=== PATIENT | female | born 1950 | race Caucasian/White ===

== ENCOUNTER → 2024-04-24 09:00 | Outpatient (BNVA) | payer MEDICARE, BC, SELFPAY | PROVIDERS: PCP Family Medicine; Visit Provider Family Medicine | DX: D64.9 Anemia, unspecified (principal); I50.20 Unspecified systolic (congestive) heart failure; R10.11 Right upper quadrant pain; R11.0 Nausea; I10 Essential (primary) hypertension; E78.2 Mixed hyperlipidemia; Z76.89 Persons encountering health services in other specified circumstances; I50.9 Heart failure, unspecified; E55.9 Vitamin D deficiency, unspecified; R79.89 Other specified abnormal findings of blood chemistry; R10.13 Epigastric pain | CPT/HCPCS: 80053; 80061; 82306; 82607; 82728; 82746; 83550; 83735; 84439; 84443; 85025; 85651; 86140 ==

== ENCOUNTER → 2024-04-26 16:12 | Outpatient (BNVA) | payer MEDICARE, BC, SELFPAY | PROVIDERS: PCP Family Medicine; Visit Provider Family Medicine | DX: R10.11 Right upper quadrant pain (principal); R11.0 Nausea; D64.9 Anemia, unspecified; R10.13 Epigastric pain | CPT/HCPCS: 87338; G0328 ==

== ENCOUNTER 2024-04-27 16:12 | Outpatient (CLI) | payer MEDICARE, BC, SELFPAY ==
--- NOTE | 2024-04-27 16:00 | USR_ITS ---
PROCEDURE INFORMATION: Exam: US Abdomen Complete Exam date and time: 04/27/2024 4:21 PM Age: 74 years old Clinical indication: Abdominal pain; Epigastric; ; Additional info: R10.13 - epigastric pain TECHNIQUE: Imaging protocol: Real-time ultrasound of the abdomen with image documentation. Complete exam. COMPARISON: No relevant prior studies available. FINDINGS: Liver: The liver is normal. Gallbladder: Multiple gallstones without evidence of cholecystistis. Biliary ducts: Common bile duct measures 4 mm. Pancreas: Evaluation of the pancreas is suboptimal due to overlying bowel gas. Right kidney: Right kidney measures 8.8 x 3.9 x 4.7 cm. 76.2 mL Left kidney: Left kidney measures 9.2 x 4.5 x 4.3 cm. 92.8 mL Spleen: The spleen is normal. Aorta: Visualized proximal abdominal aorta measures 1.4 cm in diameter. Inferior vena cava: Visualized abdominal inferior vena cava is patent. Portal venous: Main portal vein is patent. Hepatopetal flow. US/US abdomen complete* [id number] IMPRESSION: 1. Multiple gallstones without evidence of cholecystistis. 2. Suboptimal pancreatic evaluation
== END 2024-04-27 16:13 | disposition home or self-care (01) ==
LOC: RAD 16:14
PROVIDERS: PCP Family Medicine; Visit Provider Family Medicine
DX: R10.13 Epigastric pain (principal); R10.11 Right upper quadrant pain; R11.0 Nausea; K80.20 Calculus of gallbladder without cholecystitis without obstruction
CPT/HCPCS: 76700

== ENCOUNTER → 2024-05-24 13:37 | Outpatient (BNVA) | payer MEDICARE, BC, SELFPAY | PROVIDERS: PCP Family Medicine; Referring Provider Family Medicine; Visit Provider Student in an Organized Health Care Education/Training Program | DX: R10.11 Right upper quadrant pain (principal); K80.20 Calculus of gallbladder without cholecystitis without obstruction | CPT/HCPCS: 99204 ==

== ENCOUNTER → 2024-06-05 11:35 | Outpatient (BNVA) | payer MEDICARE, BC, SELFPAY | PROVIDERS: PCP Family Medicine; Visit Provider Family Medicine | DX: Z01.818 Encounter for other preprocedural examination (principal) | CPT/HCPCS: 80053; 85025; 93005 ==

== ENCOUNTER 2024-06-13 11:13 | Day surgery (SDC) | payer MEDICARE, BC, SELFPAY ==
[2024-06-13] VITALS (15 sets, daily range): BP systolic 115–157; BP diastolic 66–89; PULSE 72–92; RESP 16–18; TEMP 36.1–36.7; O2SAT 95–98; BMI 30.4
[2024-06-13] MEDS: sodium chloride 0.9% 1,000 ML 30 ML IV (12:11)
--- NOTE | 2024-06-13 12:21 | W.PM.OPSUD ---
Surgery/Procedure H&P Update DATE OF PROCEDURE: June 13, 2024 DATE H&P PERFORMED: 06/05/24 H&P UPDATE INFORMATION: I have reviewed H&P completed within last 30 days, I have examined patient prior to procedure and No changes to prior documentation PLANNED PROCEDURE: Operation Date: 06/13/24 13:00 Proposed Procedures p Laparoscopic Cholecystectomy 72146, R10.11(Not Applicable) - Brennan Moreno MD
[2024-06-13] MEDS: scopolamine 1 mg PATCH 1 PATCH TRANSDERMA (12:23)
--- NOTE | 2024-06-13 12:39 | ANES.PREANE2 ---
Pre-Anesthetic Assessment Height/Weight: Height 1.68 m Weight 85.729 kg Temp Pulse Resp BP Pulse Ox O2 Del Method 97 F L 92 18 137/73 96 Room Air 06/13/24 11:50 06/13/24 11:50 06/13/24 11:50 06/13/24 12:27 06/13/24 11:50 06/13/24 11:50 Operation Date: 06/13/24 13:00 Proposed Procedures p Laparoscopic Cholecystectomy 88318, R10.11(Not Applicable) - Brennan Moreno MD Familial anesthetic complications: None Was Beta [place] taken within 24 hours: Yes Was Clonidine taken within 24 hours: N/A Last intake: Intake Last Liquid Date 06/12/24 Last Liquid Time 08:30 Last Solid Date 06/12/24 Last Solid Time 14:00 Social No alcohol and No tobacco Exam alert, oriented x 3, clear to auscultation bilaterally and regular rate & rhythm Airway Mallampati: Class II Dentition: other (multiple missing) Pulmonary Asthma CV/HEM Deep Vein Thrombosis EF of 26% 3 weeks ago on echo, most recent cath was clear per Dr. Hinds's note Patient comes today with Cardiac clearance for general anesthesia at moderate risk Neuropsych Transient Ischemic Attack Anesthetic Plan ASA status: 2 Anesthesia: General Risk of > 500 ml blood loss (7ml/kg in children): No Other Pertinent Information Discussed with patient low EF significantly increases likelihood of cardiac complications perioperatively. Patient voiced understanding. Medications/Allergies Home Medications ?Medication ?Instructions ?Recorded ?Confirmed ?Last Taken ?Type B-complex with vitamin C 1 cap PO DAILY 04/24/24 06/13/24 06/12/24 History albuterol sulfate 90 mcg/actuation 2 puff inhalation Q6H PRN 04/24/24 06/13/24 12/16/23 History aerosol inhaler Shortness Of Breath apixaban 5 mg tablet (Eliquis) 5 mg PO BID 04/24/24 06/13/24 06/08/24 History aspirin 81 mg tablet,delayed 81 mg PO DAILY 04/24/24 06/13/24 06/08/24 08:00 History release carvedilol 6.25 mg tablet 6.25 mg PO Q12H 04/24/24 06/13/24 06/13/24 History coenzyme [id number] E 100 mg-100 1 cap PO DAILY 04/24/24 06/12/24 06/12/24 History unit capsule duloxetine 60 mg capsule,delayed 60 mg PO DAILY 04/24/24 06/13/24 06/12/24 History release eplerenone 25 mg tablet (Inspra) 25 mg PO DAILY 04/24/24 06/13/24 06/12/24 History famotidine 40 mg tablet 40 mg PO DAILY 04/24/24 06/13/24 1 Month Ago History ~05/13/24 fluticasone propionate 50 1 spray intranasal DAILY 04/24/24 06/13/24 2 Weeks Ago History mcg/actuation nasal ~05/30/24 spray,suspension furosemide 40 mg tablet 40 mg PO DAILY 04/24/24 06/13/24 1 Month Ago History ~05/13/24 loratadine 10 mg tablet (Allergy 10 mg PO DAILY 04/24/24 06/13/24 06/12/24 History Relief (loratadine)) mecobalamin (vitamin B12) 1,000 1,000 mcg PO DAILY 04/24/24 06/13/24 06/12/24 History mcg chewable tablet montelukast 10 mg tablet 10 mg PO DAILY 04/24/24 06/13/24 06/12/24 History multivitamin 1 tab PO DAILY 04/24/24 06/13/24 06/12/24 History nitroglycerin 0.4 mg sublingual 0.4 mg sublingual Q5M PRN Chest 04/24/24 06/13/24 06/09/24 History tablet Pain sacubitril 24 mg-valsartan 26 mg 1 tab PO BID 05/24/24 06/13/24 06/12/24 History tablet (Entresto) Allergies Allergy/AdvReac Type Severity Reaction Status Date / Time Sulfa (Sulfonamide Allergy Intermediate ALGY-Hives Verified 06/05/24 11:53 Antibiotics) latex Allergy Mild ALGY-Rash Verified 06/05/24 11:53 adhesive tape Allergy rash Verified 06/05/24 11:53 Current Medications Generic Name Dose Route Start Last Admin Trade Name Freq PRN Reason Stop Dose Admin Sodium Chloride 1,000 mls @ 30 mls/hr 06/13/24 11:30 06/13/24 12:11 Sodium Chloride 0.9% IV 06/14/24 11:29 30 mls/hr .Q24H SEBASTIÁN Administration PFSH Anesthesia Family History Mother Heart disease Father Heart disease Social History Smoking and tobacco/nicotine status: never used tobacco/nicotine
[2024-06-13] MEDS: ceFAZolin 2,000 mg SDV 2000 MG IVP (13:37)
[2024-06-13] MEDS: lidocaine-epi 1% 20 mL INJ 10 ML INJECTION (14:07)
--- NOTE | 2024-06-13 14:24 | P.OP_ITS ---
Operative Report Date of procedure: June 13, 2024 Pre-op diagnosis: Symptomatic cholelithiasis Post-op diagnosis: same Post-op findings: Gallbladder filled with stones Procedure done: Laparoscopic cholecystectomy Implants: N/A Specimens removed/disposition: Gallbladder sent to pathology Pathology: Gallbladder sent to pathology Surgeon: Brennan Moreno MD Cloud Operations Engineer: N/A Anesthesia: General Estimated blood loss (mL): 15 Complications: N/A Findings: Gallbladder filled with some Condition: stable Disposition: same day Brief History: 74-year-old female with multiple comorbidities who presented with symptomatic cholelithiasis. Cleared by preop clinic to undergo laparoscopic cholecystectomy possible open. Discussed risk and benefits and patient agreed to proceed with laparoscopic cholecystectomy possible open Procedure: I discussed the risks and benefits of laparoscopic cholecystectomy, and obtained consent prior to proceeding to the operating room. SCDs were utilized. Prophylactic antibiotics were administered. General anesthesia was induced. The patient was placed supine, and was prepped and draped in the usual sterile fashion. Insufflation to 15mmHg was achieved using a Veress needle at Danielle's point. A 12mm optiview trocar was placed at the umbilicus under direct visualization. The left upper quadrant was inspected, and no injuries were noted. Two 5mm ports were placed in the right upper quadrant, and a 12mm working port was placed in the epigastrium. The gallbladder was then retracted cephalad through the lateral RUQ port, and the infundibulum grabbed through the medial RUQ port and retracted laterally. The gallbladder was filled with stones, consistent with the diagnosis of symptomatic cholelithiasis. I proceeded to score the peritoneum over the medial aspect of the gallbladder using a laparo scopic hook with electrocautery. Then the infundibulum was retracted medially in order to score the peritoneum over the lateral aspect of the galbladder. Using a combination of energy and blunt dissection with the [place] and a [place] dissector, the cystic artery and cystic duct were dissected. I then proceeded to dissect the cystic plate in order to to achieve the critical view of safety. The cystic artery and the cystic duct were clipped three times (leaving two clips on the proximal end of both structures). I then proceeded to dissect the gallbladder off the liver using hook electrocautery. The specimen was placed in an endocatch bag and retrieved from the abdomen through the port on the epigastrium. I then irrigated the gallbladder fossa with 3L of NS to confirm adequate hemostasis and the absence of any bile leaks. The gallbladder fossa was then cauterized again. Prior to ending the laparoscopic portion, I examined the rest of the abdomen and did not find any abnormalities or injuries. The abdomen was then desufflated, and the 12mm port at the umbilicus was closed using 0 vicryl on a UR needle after irrigating copiously. Skin was closed using 4-0 monocryl and surgical glue. The patient woke up from anesthesia and transferred to PACU without any complications.
--- NOTE | 2024-06-13 16:30 | ANE.PACU2 ---
Inpatient post-anesthesia follow up: Airway intact: Yes Vital signs: Temperature 97.2 F Pulse Rate 80 Respiratory Rate 18 Blood Pressure 133/66 Pulse Oximetry 96 Oxygen Delivery Me thod Room Air Oxygen Flow Rate Fraction of Inspir ed Oxygen Hydration adequate: Yes Nausea and vomiting: No Pain level: 1 Mental status: Baseline
== END 2024-06-13 16:30 | disposition home or self-care (01) ==
PROVIDERS: PCP Family Medicine; Visit Provider Student in an Organized Health Care Education/Training Program
PROC: 0FT44ZZ Resection of Gallbladder, Percutaneous Endoscopic Approach (ICD-10-PCS; CPT 47562; principal; 2024-06-13 13:00)
DX: K80.10 Calculus of gallbladder with chronic cholecystitis without obstruction (principal); I50.9 Heart failure, unspecified; Z86.73 Personal history of transient ischemic attack (TIA), and cerebral infarction without residual deficits; Z79.899 Other long term (current) drug therapy; Z79.82 Long term (current) use of aspirin; Z79.01 Long term (current) use of anticoagulants; Z88.2 Allergy status to sulfonamides; Z91.09 Other allergy status, other than to drugs and biological substances; Z91.040 Latex allergy status
CPT/HCPCS: 47562; 88304; J0690; J1100; J2250; J2405; J2704; J3010; J3490; J7030; J9999

== ENCOUNTER → 2024-07-02 09:32 | Outpatient (BNVA) | payer MEDICARE, BC, SELFPAY | PROVIDERS: PCP Family Medicine; Visit Provider Student in an Organized Health Care Education/Training Program | DX: Z98.890 Other specified postprocedural states (principal) | CPT/HCPCS: 99024 ==